=== PATIENT | female | born 1970 | race Caucasian/White ===

== ENCOUNTER 2016-11-12 17:47 | Emergency (ER) | payer BC, OTHER ==
[2016-11-12 18:57] VITALS: BP 112/66
--- NOTE | 2016-11-12 19:49 | UC ---
Ear Complaint HPI - History of Current Complaint Chief Complaint: UCEar Stated Complaint: BILATERAL EAR COMPLAINT Time Seen by Provider: 11/12/16 19:40 Hx Obtained From: Patient Hx Last Menstrual Period: ABLATION IN 2008 ?: No Onset/Duration: Sudden Onset - bilateral earache, Lasting Days - 2, Worse Since - yesterday with pain running down the neck on the right side. Severity Initially: Mild Severity Currently: Moderate Alleviating Factors: Nothing Associated Signs/Symptoms: Negative: Discharge, Hearing Loss, Trauma to Ear, Swelling @, URI Symptoms Related History: Seasonal Allergies - Allergies/Home Medications Allergies/Adverse Reactions: Allergies Allergy/AdvReac Type Severity Reaction Status Date / Time No Known Allergies Allergy Verified 11/12/16 18:47 Home Medications: Home Medications Acetaminophen [Acetaminophen Extra Stren] 1,000 mg PO Q6H PRN 11/12/16 [History Confirmed 11/12/16] Apremilast [Otezla] 30 mg PO BID 11/12/16 [History Confirmed 11/12/16] Loratadine [Allergy Relief] 10 mg PO ONCE PRN 11/12/16 [History Confirmed ] PMH/Surg Hx/FS Hx/Imm Hx Endocrine History Of: Denies: Diabetes, Thyroid Disease Cardiovascular History Of: Denies: Cardiac Disorders, Hypertension, Congestive Heart Failure Respiratory History Of: Denies: COPD, Asthma GI/ History Of: Denies: Ulcer, Renal Disease - Surgical History Surgical History: Yes Surgery Procedure, Year, and Place: Tibal Ligation. Uterine Ablation. Breast Reduction - Family History Known Family History: Positive: Hypertension Negative: Cardiac Disease, Diabetes - Social History Occupation: Employed Full-time Lives: With Family Alcohol Use: Rare Substance Use Type: None Substance Use Comment - Amount & Last Used: MARIJUANA AT A MUCH YOUNGER AGE. Smoking Status (MU): Former Smoker Type: Cigarettes Amount Used/How Often: 2-3 day Length of Time of Smoking/Using Tobacco: 20 years Have You Smoked in the Last Year: Yes When Did the Patient Quit Smoking/Using Tobacco: X 2 WKS Review of Systems Constitutional: Fatigue ENT: Ear Ache Musculoskeletal: Myalgia All Other Systems Reviewed And Are Negative: Yes Physical Exam Triage Information Reviewed: Yes Appearance: Well-Appearing, No Pain Distress, Obese Vital Signs: Initial Vital Signs Temp 98.4 F 05/07/17 18:40 Pulse 71 11/12/16 18:40 Resp 16 11/12/16 18:40 BP 112/66 11/12/16 18:40 Pulse Ox 97 11/12/16 18:40 Vital Signs Reviewed: Yes ENT: Positive: Pharynx normal, Nasal congestion - with allergic changes, TMs normal Neck: Positive: No Lymphadenopathy, Tenderness @ - right SCM muscle Respiratory Exam: Normal Cardiovascular Exam: Normal Musculoskeletal Exam: Normal Neurological Exam: Normal Psychological Exam: Normal Skin Exam: Normal Ear Complaint Course/Dx - Differential Dx/Diagnosis Differential Diagnosis/HQI/PQRI: Cerumen Impaction, Mastoiditis, Otitis Media Provider Diagnoses: Cervicalgia. Allergic rhinitis Discharge - Discharge Plan Condition: Stable Disposition: HOME Prescriptions: Ibuprofen TAB* [Motrin TAB* 600 MG] 600 mg PO Q6H PRN #100 tab PRN Reason: Pain Patient Education Materials: Cervical Strain (ED), Ibuprofen (By mouth) Additional Instructions: The "ear" pain is actually in a muscle in the neck. Moist heat can be helpful.
[2016-11-12] MEDS ORDERED: Cyclobenzaprine TAB* 10 MG PO ONE (19:56)
[2016-11-12] MEDS ORDERED: Ibuprofen TAB* 600 MG PO ONE (19:56)
== END 2016-11-12 20:12 | disposition home or self-care (01) ==
LOC: UCCORT 17:47
DX: M54.2 Cervicalgia (principal); J30.9 Allergic rhinitis, unspecified; H92.03 Otalgia, bilateral; E66.9 Obesity, unspecified; Z87.891 Personal history of nicotine dependence
CPT/HCPCS: 99212; A9270-GY; G0463